=== PATIENT | male | born 1985 | race Caucasian/White ===

== ENCOUNTER 2017-03-22 08:54 | Emergency (ER) | payer SELFPAY ==
[~2017-03-22] VITALS: Ht 188 cm; Wt 95.3 kg
--- NOTE | 2017-03-22 09:02 | ER Report ---
History and Physical Time Seen By MD: 09:02 EMILY/ANGIE CHIEF COMPLAINT: Back pain HISTORY OF PRESENT ILLNESS: Patient is a 32-year-old male with no contributory past medical history is coming to the emergency department for severe lower back pain. Patient states he was doing some squats yesterday felt discomfort with the last 3 squats but still pursued to complete his set. Last evening he had some discomfort but did some stretching exercises and felt okay going to bed. This morning when he woke he is having severe painful spasms in the lower back. He denies any history of traumatic injury other than performing the squats denies any saddle anesthesia denies any urinary or stool retention or incontinence. She has no prior history of back pain. He shouldn't denies any urinary symptoms denies testicular or scrotal pain or masses. REVIEW OF SYSTEMS: Cardiovascular: No chest pain, no palpitations. Respiratory: No cough, no shortness of breath. Gastrointestinal: No abdominal pain, no vomiting. Genitourinary: No hematuria. Musculoskeletal: Severe lower back pain Skin: No rashes. Allergies: Coded Allergies: No Known Drug Allergies (Unverified , 03/22/17) Home Meds Active Scripts Methocarbamol (ROBAXIN-750) 750 Mg Tablet, 1500 MG PO TID for Muscle Relaxant, # 30 TAB 0 Refills Prov:LIZ DANIELLE MD 03/22/17 Hydrocodone Bit/Acetaminophen (HYDROCODON-ACETAMINOPHEN 5-325) 1 Each Tablet, 1- 2 EACH PO Q4-6H for PAIN, #30 TAB 0 Refills Prov:LIZ DANIELLE MD 03/22/17 Past Medical/Surgical History Noncontributory to this chief complaint Constitutional Vital Sign - Last 24 Hours 03/22/17 03/22/17 03/22/17 03/22/17 09:01 09:01 09:09 09:24 Temp 97.8 Pulse 45 48 54 Resp 16 B/P (MAP) 140/92 140/92 (108) Pulse Ox 96 95 94 O2 Delivery Room Air 03/22/17 03/22/17 03/22/17 03/22/17 09:42 09:54 10:00 10:09 Pulse 46 B/P (MAP) 138/67 (90) 120/76 (91) Pulse Ox 91 93 03/22/17 03/22/17 03/22/1703/22/18 10:14 10:19 10:24 10:29 Pulse 54 47 47 45 Pulse Ox 89 94 93 92 03/22/17 03/22/17 03/22/17 10:30 10:34 10:39 Pulse 49 B/P (MAP) 136/84 (101) Pulse Ox 94 92 Physical Exam General appearance: alert no acute respiratory distress. Patient seems uncomfortable Back: Thoracic spine has no spinal or paraspinal tenderness to palpation. Lumbar spine has no spinal tenderness severe paraspinal tenderness Gastroinal: Abdomen is soft, non tender, no masses.. Skin: No lesions and no rashes. Vascular: Normal capillary refill and pulses to feet. Neurological: Motor function: leg strength normal and symmetric for both legs Sensory function: normal for all leg dermatomes. Straight leg raise painful with extension of the knee to both sides Reflexes normal bilaterally on legs. [ ] DIFFERENTIAL DIAGNOSIS: After history and physical exam differential diagnosis was considered for back pain including muscular strain, herniated disc, intra- abdominal and renal causes. Medical Decision Making Data Points Laboratory Hematology Test 03/22/17 10:14 Urine Color Yellow Urine Clarity Clear Urine pH 5.0 pH (4.8-9.5) Urine Specific [place] 1.020 Urine Protein Negative mg/dL (NEGATIVE) Urine Glucose (UA) Negative mg/dL (NEGATIVE) Urine Ketones Negative mg/dL (NEGATIVE) Urine Blood Negative (NEGATIVE) Urine Nitrite Negative (NEGATIVE) Urine Bilirubin Negative (NEGATIVE) Urine Urobilinogen Negative mg/dL (0.2-1.9) Urine Leukocyte Esterase Negative (NEGATIVE) Urine RBC None /HPF (0-2/HPF) Urine WBC <1 /HPF (0-5/HPF) Urine Squamous Epithelial Cells None /LPF (</=FEW) Urine Bacteria Negative /HPF (NONE-FEW) Urine Mucus None /HPF (NONE-FEW) Chemistry Test 03/22/17 10:14 Urine Color Yellow Urine Clarity Clear Urine pH 5.0 pH (4.8-9.5) Urine Specific [place] 1.020 Urine Protein Negative mg/dL (NEGATIVE) Urine Glucose (UA) Negative mg/dL (NEGATIVE) Urine Ketones Negative mg/dL (NEGATIVE) Urine Blood Negative (NEGATIVE) Urine Nitrite Negative (NEGATIVE) Urine Bilirubin Negative (NEGATIVE) Urine Urobilinogen Negative mg/dL (0.2-1.9) Urine Leukocyte Esterase Negative (NEGATIVE) Urine RBC None /HPF (0-2/HPF) Urine WBC <1 /HPF (0-5/HPF) Urine Squamous Epithelial Cells None /LPF (</=FEW) Urine Bacteria Negative /HPF (NONE-FEW) Urine Mucus None /HPF (NONE-FEW) Urinalysis Test 03/22/17 10:14 Urine Color Yellow Urine Clarity Clear Urine pH 5.0 pH (4.8-9.5) Urine Specific [place] 1.020 Urine Protein Negative mg/dL (NEGATIVE) Urine Glucose (UA) Negative mg/dL (NEGATIVE) Urine Ketones Negative mg/dL (NEGATIVE) Urine Blood Negative (NEGATIVE) Urine Nitrite Negative (NEGATIVE) Urine Bilirubin Negative (NEGATIVE) Urine Urobilinogen Negative mg/dL (0.2-1.9) Urine Leukocyte Esterase Negative (NEGATIVE) Urine RBC None /HPF (0-2/HPF) Urine WBC <1 /HPF (0-5/HPF) Urine Squamous Epithelial Cells None /LPF (</=FEW) Urine Bacteria Negative /HPF (NONE-FEW) Urine Mucus None /HPF (NONE-FEW) EKG/Imaging Imaging FACILITY: [facility] - [place], [place] PATIENT NAME: Harley Lara : 1985 MR: [id number] V: [id number] EXAM DATE: ORDERING PHYSICIAN: LIZ DANIELLE TECHNOLOGIST: Location: [facility] Patient: Harley Lara : 1985 Visit/Account:[id number] Date of Sevice: 03/22/2017 Exam type: LUMBAR SPINE 2 OR 3 VIEW History: Lifting injury, pain Comparison: None. Findings: There are five nonrib-bearing lumbar-type vertebral bodies present. There appears to be a transitional sacralized segment as well. There is no evidence of acute fractures or subluxations. The disc spaces are well-preserved other than a small rudimentary disc space at the sacralized lower lumbar segment. IMPRESSION: 1. No evidence of acute fractures or subluxations in the lumbar spine Report Dictated By: Ni Bajwa MD at 03/22/2017 10:02 AM Report E-Signed By: Ni Bajwa MD at 03/22/2017 10:04 AM WSN:[email or web address] ED Course/Re-evaluation ED Course Plan at this time will be to perform x-ray of the low back we will give oral pain medicines as patient refused either IM or IV pain medicines we will give a muscle relaxant with Robaxin. We will also obtain a urinalysis. Decision to Disposition Date: Mar 22, 2017 Decision to Disposition Time: 11:20 Depart Departure Latest Vital Signs Vital Signs Date Time Temp Pulse Resp B/P (MAP) Pulse Ox O2 Delivery O2 Flow Rate FiO2 03/22/17 10:39 92 03/22/17 10:34 49 03/22/17 10:30 136/84 (101) 03/22/17 09:01 97.8 16 Room Air Impression: Primary Impression: Back pain Condition: Improved Disposition: HOME OR SELF-CARE New Scripts Methocarbamol (ROBAXIN-750) 750 Mg Tablet 1500 MG PO TID for Muscle Relaxant, #30 TAB 0 Refills Prov: LIZ DANIELLE MD 03/22/17 Hydrocodone Bit/Acetaminophen (HYDROCODON-ACETAMINOPHEN 5-325) 1 Each Tablet 1-2 EACH PO Q4-6H for PAIN, #30 TAB 0 Refills Prov: LIZ DANIELLE MD 03/22/17 Departure Forms: ER Transition Record, Medications Reconciliation, Off Work/ School Form, School or Work Release?: School Number of days to be released: 3 Patient Portal Information Patient Instructions: Acute Low Back Pain (GEN) Problem Qualifiers Primary Impression: Back pain Back pain location: low back pain Chronicity: acute Back pain laterality: bilateral Sciatica presence: without sciatica Qualified Codes: M54.5 - Low back pain LIZ DANIELLE MD Mar 22, 2017 09:02
[2017-03-22] MEDS ORDERED: METHOCARBAMOL 500 MG TAB PO ONE (09:25)
--- NOTE | 2017-03-22 10:07 | RADIOLOGY IMAGING REPORT ---
FACILITY: [facility] [place] PATIENT NAME: Harley Lara : 1985 MR: [id number] V: [id number] EXAM DATE: ORDERING PHYSICIAN: LIZ DANIELLE TECHNOLOGIST: [place] [facility] [place]ley L[place] : 1985 Visit/Account:[id number] Date of Sevice: 03/22/2017 Exam type: LUMBAR SPINE 2 OR 3 VIEW History: Lifting injury, pain Comparison: None. Findings: There are five nonrib-bearing lumbar-type vertebral bodies present. There appears to be a transition al sacralized segment as well. There is no evidence of acute fractures or subluxations. The disc sp aces are well-preserved other than a small rudimentary disc space at the sacralized lower lumbar segm ent. IMPRESSION: 1. No evidence of acute fractures or subluxations in the lumbar spine Report Dictated By: Ni Bajwa MD at 03/22/2017 10:02 AM Report E-Signed By: Ni Bajwa MD at 03/22/2017 10:04 AM WSN:[email or web address]
[2017-03-22] MEDS ORDERED: METH-543 PO (10:52)
[2017-03-22] MEDS ORDERED: LOR5/325 PO (10:52)
[2017-03-22 11:20] VITALS: BP 133/101
== END 2017-03-22 11:17 | disposition home or self-care (01) ==
LOC: ER 08:55
DX: M54.5 Low back pain (principal); X50.0XXA Overexertion from strenuous movement or load, initial encounter
CPT/HCPCS: 72100; 81001; 99283